=== PATIENT | male | born 1955 | race Two or more races ===

== ENCOUNTER 2017-05-12 11:08 | Outpatient (CLI) | payer OTHER | END 2017-05-12 14:43 | disposition home or self-care (01) | LOC: RAD 11:08 | DX: Z00.01 Encounter for general adult medical examination with abnormal findings (principal) ==

== ENCOUNTER → 2018-05-09 | Outpatient (CLI) | payer OTHER | END | disposition home or self-care (01) | LOC: RAD 10:07 | DX: Z00.00 Encounter for general adult medical examination without abnormal findings (principal) ==

== ENCOUNTER 2018-05-18 06:59 | Outpatient (CLI) | payer OTHER | END 2018-05-18 07:11 | disposition home or self-care (01) | LOC: LAB 06:59 | DX: I10 Essential (primary) hypertension (principal) ==

== ENCOUNTER 2018-09-18 09:15 | Outpatient (CLI) | payer OTHER | END 2018-09-18 09:18 | disposition home or self-care (01) | LOC: RAD 09:15 | DX: M54.2 Cervicalgia (principal); R53.81 Other malaise ==

== ENCOUNTER → 2019-08-02 | Outpatient (CLI) | payer OTHER | END | disposition home or self-care (01) | LOC: RAD 08:13 | PROVIDERS: ATTEND Specialist | DX: Z13.9 Encounter for screening, unspecified (principal) ==

== ENCOUNTER 2020-09-03 08:53 | Outpatient (CLI) | payer OTHER | END 2020-09-03 08:58 | disposition home or self-care (01) | LOC: RAD 08:53 | PROVIDERS: ATTEND Specialist | DX: Z02.71 Encounter for disability determination (principal) ==

== ENCOUNTER 2021-06-07 08:00 | Outpatient (CLI) | payer OTHER | END 2021-06-07 08:30 | disposition home or self-care (01) | LOC: PPH VACUNA 08:00 | PROVIDERS: ATTEND Emergency Medicine Pediatric Emergency Medicine | DX: Z23 Encounter for immunization (principal) ==

== ENCOUNTER 2021-09-09 14:52 | Outpatient (CLI) | payer OTHER | END 2021-09-09 15:23 | disposition home or self-care (01) | LOC: RAD 14:52 | DX: Z02.79 Encounter for issue of other medical certificate (principal) ==

== ENCOUNTER 2022-10-04 09:12 | Outpatient (CLI) | payer OTHER | END 2022-10-04 09:24 | disposition home or self-care (01) | LOC: RAD 09:12 | PROVIDERS: ATTEND Specialist | DX: Z02.89 Encounter for other administrative examinations (principal) ==

== ENCOUNTER 2023-09-05 11:18 | Outpatient (CLI) | payer OTHER | END 2023-09-05 11:20 | disposition home or self-care (01) | LOC: RAD 11:18 | PROVIDERS: ATTEND Specialist | DX: Z02.79 Encounter for issue of other medical certificate (principal) ==

== ENCOUNTER 2024-05-13 10:09 | Outpatient (CLI) | payer OTHER | END 2024-05-13 10:19 | disposition home or self-care (01) | LOC: RAD 10:09 | PROVIDERS: ATTEND General Practice | DX: S00.81XA Abrasion of other part of head, initial encounter (principal); S69.91XA Unspecified injury of right wrist, hand and finger(s), initial encounter; S80.911A Unspecified superficial injury of right knee, initial encounter; W13.3XXA Fall through floor, initial encounter ==

== ENCOUNTER → 2024-07-26 06:51 | Outpatient (CLI) | payer OTHER ==
[2024-07-26 07:55] LABS: EOS # 0.31 (0.04-0.54); EOS % 2.9 % (0.7-7.0); HEMATOCRIT 61.1 % (40.1-51.0); LYMPH # 2.42 (1.18-3.74); LYMPH % 22.4 % (19.3-53.1); MEAN CORPUSCULAR HEMOGLOBIN 27.9 pg (25.6-32.2); MONO # 0.63 (0.24-0.82); MONO % 5.8 % (4.7-12.5); NEUT # 7.25 (1.56-6.13); NEUT % 67.1 % (34.0-71.1); PLATELET COUNT 319 K/uL (163-369); RED CELL DISTRIBUTION WIDTH 18.9 % (11.6-14.4)
[2024-07-26 08:00] LABS: RED BLOOD COUNT 7.16 M/uL (4.63-6.08)
[2024-07-26 08:02] LABS: URINE APPEARANCE Clear; URINE BILIRRUBIN Negative (NEGATIVE); URINE BLOOD Trace; URINE COLOR Yellow; URINE GLUCOSE Negative (NEGATIVE); URINE KETONE Negative (NEGATIVE); URINE LEUKOCYTE Negative; URINE NITRATE Negative; URINE PROTEIN 30 (NEGATIVE); URINE UROBILINOGEN 0.2 E.U./dl
[2024-07-26 08:05] LABS: ERYTHROCYTE SEDIMENTATION RATE 9 mm/hr (0-20)
[2024-07-26 08:06] LABS: URINE BACTERIA 9.7 uL (0.0-1933); URINE EPITHELIAL CELLS 4.5 uL (0.0-38.8); URINE RBC 3.5 uL (0.0-20.8); URINE WBC 4.1 uL (0.0-23.2)
[2024-07-26 08:46] LABS: URINE CAST 0.73 uL (0.0-1.40)
[2024-07-26 08:57] LABS: ALBUMIN 3.6 gm/dL (3.4-5.0); BILIRUBIN TOTAL 0.97 mg/dL (0.3-1.2); CALCIUM 9.2 mg/dL (8.5-10.1); CHOL HDL RATIO 3.2 (0-5.0); CREATININE SERUM 0.81 mg/dL (0.70-1.30); GFR 95.05; GLOBULINA 3.9 G/DL (2.4-3.5); POTASSIUM 4.08 mEq/L (3.5-5.1); TOTAL PROTEIN 7.5 gm/dL (6.4-8.2); TSH 2.85 uIU/mL (0.358-3.74)
[2024-07-26 09:37] LABS: ob NEGATIVE (NEGATIVE)
[2024-07-26 11:57] LABS: RF NEGATIVE (NEGATIVE)
[2024-07-26 13:49] LABS: PROSTATIC SPECIFIC ANTIGEN 1.01 NG/ML (0.010-4.00)
[2024-07-26 15:37] LABS: RAPID PLASMA REAGIN NONREACTIVE BY RPR (NONREACTIVE)
[2024-07-27 07:11] LABS: hav igm Negative (Negative); hcv Non Reactive (Non Reactive); hep b c Negative (Negative); hep b s ag Negative (Negative)
== END | disposition home or self-care (01) ==
LOC: LAB 06:51
PROVIDERS: ATTEND General Practice
DX: M79.641 Pain in right hand (principal); M25.541 Pain in joints of right hand; Z11.3 Encounter for screening for infections with a predominantly sexual mode of transmission; Z12.11 Encounter for screening for malignant neoplasm of colon; Z13.29 Encounter for screening for other suspected endocrine disorder; E78.5 Hyperlipidemia, unspecified; I10 Essential (primary) hypertension; Z12.5 Encounter for screening for malignant neoplasm of prostate; N39.0 Urinary tract infection, site not specified; N40.1 Benign prostatic hyperplasia with lower urinary tract symptoms; M25.50 Pain in unspecified joint

== ENCOUNTER 2024-08-30 10:33 | Outpatient (CLI) | payer OTHER | END 2024-08-30 10:35 | disposition home or self-care (01) | LOC: RAD 10:33 | DX: Z02.79 Encounter for issue of other medical certificate (principal) ==